=== PATIENT | male | born 1990 | race Caucasian/White ===

== ENCOUNTER 2018-04-09 21:07 | Emergency (ER) | payer OTHER ==
[~2018-04-09] VITALS: Wt 87.1 kg
[~2018-04-09 21:07] MED LIST: NKHM
[2018-04-09] MEDS ORDERED: MEDROL DOSEPAK4 MG PO (22:34)
[2018-04-09] MEDS ORDERED: CYCLOBENZAPRINE5 M3 PO (22:34)
== END 2018-04-09 22:37 | disposition home or self-care (01) ==
LOC: ED 21:07
DX: S39.012A Strain of muscle, fascia and tendon of lower back, initial encounter (principal); X50.9XXA Other and unspecified overexertion or strenuous movements or postures, initial encounter; Y93.F2 Activity, caregiving, lifting; Y92.89 Other specified places as the place of occurrence of the external cause; Y99.8 Other external cause status

== ENCOUNTER 2019-12-02 13:43 | Emergency (ER) | payer SELFPAY ==
[~2019-12-02] VITALS: Ht 185.4 cm; Wt 98.0 kg
[~2019-12-02 13:43] MED LIST changes: +CYCLOBENZAPRINE5 M3 PO; +MEDROL DOSEPAK4 MG PO
[2019-12-02] MEDS ORDERED: METHOCARBAMOL500 M1 PO (16:29)
[2019-12-02] MEDS ORDERED: IBU800 MG PO (16:29)
[2019-12-02] MEDS ORDERED: PREDNISONE20 M1 PO (16:29)
== END 2019-12-02 16:33 | disposition home or self-care (01) ==
LOC: ED 13:43
DX: M54.5 Low back pain (principal); M62.838 Other muscle spasm